=== PATIENT | female | born 1970 | race Caucasian/White ===

== ENCOUNTER 2017-10-28 06:13 | Emergency (ER) | payer OTHER ==
[~2017-10-28] VITALS: Ht 157.5 cm; Wt 49.4 kg
[2017-10-28] MEDS ORDERED: ADVIL100 M1 (06:40)
== END 2017-10-28 09:37 | disposition home or self-care (01) ==
LOC: ER 06:13
DX: S63.591A Other specified sprain of right wrist, initial encounter (principal); X50.3XXA Overexertion from repetitive movements, initial encounter; Y93.89 Activity, other specified; Y92.89 Other specified places as the place of occurrence of the external cause; Y99.8 Other external cause status